=== PATIENT | male | born 1985 | race Caucasian/White ===

== ENCOUNTER → 2024-01-16 | Outpatient (CLI) | payer SELFPAY ==
--- NOTE | 2024-01-16 | VAS_PTH ---
PATIENT: DOMO THOMAS [facility][id number] AGE/SX: 38/M ROOM: RE01/16/[address]: Dr. Bhupinder Green MD : 1985 BED: DIS: 01/16/2024 SPEC #: [id number] RECD: 01/16/24 15:10 STATUS: BRENDA REMichael #: [id number] KATT: 01/16/24 00:[address]: Bhupinder Green DEPT: SURGICAL PATHOLOGY RECD BY: Sabi Burns ENTERED: 01/19/24 08:08 SP TYPE: VAS OTHR DR: Dr. Rene Palumbo, DO Tissues: A - Vas deferens, NOS B - Vas deferens, NOS Procedures: Surgery Specimen Level II HEADER OPERATION: Bilateral partial vasectomy PRE-OP DIAGNOSIS: Sterilization TISSUE SUBMITTED: A- Right vas deferens, B- Left vas deferens MICROSCOPIC DIAGNOSIS A. Right vas deferens, segmental vasectomy: Complete cross-section of vas deferens with no pathologic change. B. Left vas deferens, segmental vasectomy: Complete cross-section of vas deferens with no pathologic change. AM: 01/20/2024 MICROSCOPIC DESCRIPTION Slides are reviewed. GROSS DESCRIPTION A - Received is one container designated right vas deferens. The specimen consists of a tubular segment of mueller soft tissue measuring 1.0 cm in length and 0.3 cm in diameter. The specimen is sectioned and submitted entirely in one cassette. B - Received is one container designated left vas deferens. The specimen consists of a tubular segment of mueller soft tissue measuring 1.0 cm in length and 0.3 cm in diameter. The specimen is sectioned and submitted entirely in one cassette. / SJ: 01/19/2024 TC:4 CPT: 18744 x2
== END | disposition home or self-care (01) ==
LOC: LABSPEC 16:01
PROVIDERS: PCP Family Medicine; Referring Provider Surgery; Visit Provider Surgery
DX: Z30.2 Encounter for sterilization (principal)
CPT/HCPCS: 88302

== ENCOUNTER → 2024-03-28 | Outpatient (CLI) | payer SELFPAY ==
--- NOTE | 2024-03-28 14:30 | CYSPIN_PTH ---
PATIENT: DOMO THOMAS [id number] AGE/SX: 38/M ROOM: RE03/28/[address]: Dr. Bhupinder Green MD : 1985 BED: DIS: 03/28/2024 SPEC #: [id number] RECD: 03/29/24 10:33 STATUS: BRENDA REQ #: [id number] KATT: 03/28/24 14:[address]: Bhupinder Green DEPT: CYTOLOGY RECD BY: Erlinda Villasenor ENTERED: 03/29/24 10:33 SP TYPE: CYSPIN FL OTHR DR: Dr. Rene Palumbo, DO Tissues: Cytologic material, NOS Procedures: Pap Stain (control) Special Stain Group II Cytospin Fluid HEADER OPERATION: Post vasectomy status PRE-OP DIAGNOSIS: Post vasectomy status TISSUE SUBMITTED: Seminal fluid for cytology DIAGNOSIS CYTOLOGY Seminal fluid for cytology (cytospins): Rare spermatozoa are noted. See comment. mr 03/29/2024 COMMENT Clinical correlation and appropriate follow up are necessary. CYTOLOGY STUDY Slides are reviewed. CYTOLOGY GROSS Received is 1.5 ml of opaque cloudy fluid labeled with the patient's name and and designated per the requisition as Seminal fluid. Submitted for cytology preparation. Mr 03/29/2024 TC:5 CPT: 08335
[2024-03-29 09:37] LABS: Cytology, Semen SEE PATHOLOGY REPORT
== END | disposition home or self-care (01) ==
LOC: LABSPEC 03-29 09:34
PROVIDERS: PCP Family Medicine; Referring Provider Surgery; Visit Provider Surgery
DX: Z30.2 Encounter for sterilization (principal)
CPT/HCPCS: 88108; 88313

== ENCOUNTER → 2024-05-14 | Outpatient (CLI) | payer SELFPAY ==
--- NOTE | 2024-05-14 09:15 | CYSPIN_PTH ---
PAT[facility]: DOM[facility]OMAS [id number] AGE/SX: 38/M ROOM: RE05/14/[address]: Dr. Bhupinder Green MD : 1985 BED: DIS: 05/14/2024 SPEC #: [id number] RECD: 05/14/24 09:56 STATUS: BRENDA KAUSHIK #: [id number] KATT: 05/14/24 09:[address]: Bhupinder Green DEPT: CYTOLOGY RECD BY: Riley Cisse ENTERED: 05/14/24 09:57 SP TYPE: CYSPIN FL OTHR DR: Dr. Rene Palumbo, DO Tissues: Cytologic material, NOS Procedures: Pap Stain (control) Special Stain Group II Cytospin Fluid HEADER OPERATION: Post vasectomy PRE-OP DIAGNOSIS: Post vasectomy status TISSUE SUBMITTED: Seminal fluid for cytology DIAGNOSIS CYTOLOGY Seminal fluid, cytology:Benign epithelial cells and lymphocytesSpermatozoa are not identified Junior Marquez 05/17/24 CYTOLOGY STUDY Slides are reviewed. CYTOLOGY GROSS Received is 5 ml of cloudy-opaque fluid labeled with the patient's name and and designated per the requisition as Seminal fluid. Submitted for cytology preparation. Mr 05/14/2024 CPT: 80593 TC: 5
[2024-05-14 09:16] LABS: Cytology, Semen SEE PATHOLOGY REPORT
== END | disposition home or self-care (01) ==
PROVIDERS: PCP Family Medicine; Referring Provider Surgery; Visit Provider Surgery
DX: Z30.2 Encounter for sterilization (principal); Z98.52 Vasectomy status
CPT/HCPCS: 88108; 88313

== ENCOUNTER → 2024-05-24 | Outpatient (CLI) | payer SELFPAY ==
--- NOTE | 2024-05-22 16:30 | CYSPIN_PTH ---
PATIENT: DOM[facility] THOMAS [facility] U[id number] AGE/SX: 38/M ROOM: RE05/24/[address]: Dr. Bhupinder Green MD : 1985 BED: DIS: 05/24/2024 SPEC #: [id number] RECD: 05/24/24 10:13 STATUS: BRENDA REMichael #: [id number] KATT: 05/22/24 16:[address]: Bhupinder Green DEPT: CYTOLOGY RECD BY: Erlinda Villasenor ENTERED: 05/24/24 10:14 SP TYPE: CYSPIN FL OTHR DR: Dr. eRne Palumbo, DO Tissues: Cytologic material, NOS Procedures: Pap Stain (control) Special Stain Group II Cytospin Fluid HEADER OPERATION: Post vasectomy PRE-OP DIAGNOSIS: Post vasectomy status TISSUE SUBMITTED: A- Seminal fluid for cytology DIAGNOSIS CYTOLOGY A. Seminal fluid, post-vasectomy (cytospin): * Rare spermatozoa observed. COMMENT The diagnosis was reported to Dr Gill's office staff (Angelica) at 2:25 pm on 06/09/2024. CYTOLOGY STUDY Slides are reviewed. CYTOLOGY GROSS A. Received is 1 ml of white-mucoid fluid labeled with the patient's name and and designated per the requisition as Seminal fluid. Submitted for cytology. 05/24/2024 CPT: 26466 ,06628
[2024-05-24 09:07] LABS: Cytology, Semen SEE PATHOLOGY REPORT
== END | disposition home or self-care (01) ==
LOC: LABSPEC 08:58
PROVIDERS: PCP Family Medicine; Referring Provider Surgery; Visit Provider Surgery
DX: Z98.52 Vasectomy status (principal)
CPT/HCPCS: 88108; 88313